=== PATIENT | female | born 1935 | race Caucasian/White ===

== ENCOUNTER 2016-12-16 23:38 | Inpatient (IN) | payer OTHER ==
[~2016-12-16] VITALS: Ht 160 cm; Wt 88.1 kg
--- NOTE | ~2016-12-16 | CON ---
[place], [place] REPORT OF CONSULTATION NAME: JILL POSEY UNIT #: [id number] ROOM: 425 DOCTOR: MEKA ORNELAS MD BIRTHDATE: [birth year] DOS: 12/21/2016 CHIEF COMPLAINT: "Oh I feel so much better today, thank you for asking." HISTORY OF PRESENT ILLNESS: This is an 81-year-old white female who was admitted to the hospital due to a significant change in her mental status. The patient presented acutely confused with a significant headache and slurring of her speech. Per the patient's report, the patient suddenly began slurring her words. Her sister who was with her noticed this and brought to her attention. This progressively worsened over the next hour to the point where she was unable to speak and when she did speak it was per her report nonsensical. She subsequently was admitted to the medical floor where she was diagnosed with a transient ischemic attack and also with a UTI. The chart indicates that the patient has improved gradually over time, most recently it notes that the daughter states that the patient has been seeing shadow people; however, when I interviewed her today, she denied that this was occurring. MENTAL STATUS: She is alert and oriented. Mood does seem to be euthymic. Affect appropriate. There are no symptoms of gucci or hypomania. There are no voice delusions or paranoia. No auditory or visual hallucinations. For the most part, memory is fully intact. DIAGNOSIS: Brief psychotic disorder, resolving. PLAN: At this point, I would monitor. With the treatment of the UTI, this seems to be resolving and seems to be more of a metabolic issues At this point, I see no reason to admit to the [facility]. MEKA ORNELAS MD CM:CONSTR:REPORT OF CONSULTATION 1016 12/21/16 2135 interface
[~2016-12-16 23:38] MED LIST: ASPI-COR81 M1 PO; CEPHALEXIN500 M1 PO; DARVOCET N 1001 TAB PO; ENALAPRIL20 MG PO; GLIPIZIDE10 MG PO; LEVOTHYROXIN0.025 MG PO; MACROBID100 M1 PO; METFORMIN850 MG PO; METOPROLOL SUCC50 M1 PO; METOPROLOL50 MG PO; OSTEO BI-FLEX1 EAC1 PO; VICODIN 5-3001 EACH PO; VITAMIN D5000 UNIT PO; VOLTAREN50 M1 PO
[2016-12-16 23:50] VITALS: BP 195/73
[2016-12-17 00:41] LABS: BASO # 0.1 10*3/uL (0.0-0.1); BASO % 0.6 % (0.0-1.0); EOS # 0.1 10*3/uL (0.0-0.4); EOS % 1.3 % (1.0-4.0); HEMATOCRIT 40.7 % (37.0-47.0); HEMOGLOBIN 13.4 g/dl (12.0-16.0); LYMPH # 3.1 10*3/uL (1.3-4.4); MEAN CELL VOLUME 90.6 fl (81.0-99.0); MEAN CORPUSCULAR HGB 29.8 pg (27.0-31.0); MEAN CORPUSCULAR HGB CONC 32.9 g/dl (33.0-37.0); MEAN PLATELET VOLUME 10.6 fl (9.6-12.3); MONO # 0.6 10*3/uL (0.1-1.0); MONO % 5.6 % (3.0-9.0); PLATELET COUNT AUTOMATED 313 10*3/uL (130-400); RED BLOOD COUNT 4.49 10*6/uL (4.10-5.10); RED CELL DISTRI WIDTH 13.3 % (0-14.5); WHITE BLOOD COUNT 10.9 10*3/uL (4.8-10.8)
[2016-12-17 01:02] LABS: ALBUMIN 3.3 gm/dl (3.1-4.5); ALKALINE PHOSPHATASE 93 U/L (45-117); BUN 13 mg/dl (7-24); CHLORIDE 103 mmol/L (98-107); CREATININE 0.94 mg/dL (0.55-1.02); MAGNESIUM 1.8 mg/dL (1.5-2.1); POTASSIUM 3.9 mmol/L (3.5-5.1); SGOT/AST 14 IU/L (3-35); SGPT/ALT 16 U/L (12-78); SODIUM 140 mmol/L (136-145); TOTAL PROTEIN 6.6 gm/dL (6.4-8.2)
[2016-12-17 01:04] LABS: TROPONIN I < 0.015 ng/ml (<0.045)
[2016-12-17 01:33] LABS: ACT PARTIAL THROMBO TIME 21.9 SECONDS (20.8-31.5); INTERNATIONAL NORM RATIO 0.9 (2.0-3.5)
[2016-12-17 02:07] LABS: BILIRUBIN NEGATIVE (NEGATIVE); BLOOD NEGATIVE (NEGATIVE); CLARITY CLOUDY (CLEAR); COLOR YELLOW (YELLOW); GLUCOSE NEGATIVE (NEGATIVE); KETONE TRACE (NEGATIVE); LEUKO ESTERASE 3+ (NEGATIVE); NITRITE POSITIVE (NEGATIVE); SPECIFIC GRAVITY 1.025 (1.005-1.030); UROBILINOGEN 0.2 E.U./dl (0.2-1.0)
[2016-12-17 02:12] LABS: BACTERIA 2+; EPITHELIAL CELLS TNTC; WBC 21-30 wbc/hpf (0-5)
[2016-12-17 02:33] VITALS: BP 150/72
--- NOTE | 2016-12-17 03:09 | NUR ---
ATTEMPTED TO CALL REPORT TO FLOOR
--- NOTE | 2016-12-17 03:26 | NUR ---
pt report given to santana calhoun
[2016-12-17 03:45] VITALS: BP 145/54
--- NOTE | 2016-12-17 03:45 | NUR ---
A 81, admitted to , under the services of MAXINE Zavala DO with a diagnosis of UTI. Chief complaint is some confusion, not using right words and difficulty speaking. . Patient arrived via private vehicle to ER. Monitor applied. Initial assessment completed. Vital signs taken and recorded. MAXINE ZAVALA DO to be notified of admission to the unit. And to obtain orders. See assessment for past medical history, medications and allergies. Patient and/or family oriented to unit. [facility]. Clothing/patient valuable form completed. RONAN SUE
[2016-12-17] MEDS ORDERED: ENALAPRIL20 MG PO (03:57)
[2016-12-17] MEDS ORDERED: FISH OIL 1,0001 EAC5 PO (04:05)
--- NOTE | 2016-12-17 05:32 | NUR ---
PRN TYLENOL GIVEN TO PATIENT FOR C/O SLIGHT HEADACHE. WILL MONITOR.
[2016-12-17 05:55] LABS: BASO # 0.1 10*3/uL (0.0-0.1); BASO % 0.5 % (0.0-1.0); EOS # 0.1 10*3/uL (0.0-0.4); EOS % 1.2 % (1.0-4.0); HEMATOCRIT 38.4 % (37.0-47.0); HEMOGLOBIN 12.6 g/dl (12.0-16.0); LYMPH # 3.2 10*3/uL (1.3-4.4); LYMPH % 30.4 % (27.0-41.0); MEAN CELL VOLUME 89.7 fl (81.0-99.0); MEAN CORPUSCULAR HGB 29.4 pg (27.0-31.0); MEAN CORPUSCULAR HGB CONC 32.8 g/dl (33.0-37.0); MEAN PLATELET VOLUME 11.2 fl (9.6-12.3); MONO # 0.6 10*3/uL (0.1-1.0); MONO % 5.9 % (3.0-9.0); NEUT # 6.5 10*3/uL (2.3-7.9); NEUT % 61.6 % (47.0-73.0); PLATELET COUNT AUTOMATED 301 10*3/uL (130-400); RED BLOOD COUNT 4.28 10*6/uL (4.10-5.10); RED CELL DISTRI WIDTH 13.4 % (0-14.5); WHITE BLOOD COUNT 10.6 10*3/uL (4.8-10.8)
[2016-12-17 06:02] LABS: ALBUMIN 3.1 gm/dl (3.1-4.5); ALKALINE PHOSPHATASE 91 U/L (45-117); BUN 12 mg/dl (7-24); CHLORIDE 106 mmol/L (98-107); CHOLESTEROL 144 mg/dL (<200); CREATININE 0.79 mg/dL (0.55-1.02); FREE T4 1.04 ng/dl (0.76-1.46); HDL CHOLESTEROL 75 mg/dl (40-60); LDL CHOLESTEROL 38 mg/dL (9-159); MAGNESIUM 1.8 mg/dL (1.5-2.1); PHOSPHOROUS 3.3 mg/dL (2.5-4.9); POTASSIUM 3.6 mmol/L (3.5-5.1); SGOT/AST 15 IU/L (3-35); SGPT/ALT 16 U/L (12-78); SODIUM 139 mmol/L (136-145); TOTAL PROTEIN 6.4 gm/dL (6.4-8.2); TRIGLYCERIDES 156 mg/dl (<150); VLDL CHOLESTEROL 31 mg/dL (6-40)
[2016-12-17 06:17] LABS: ACT PARTIAL THROMBO TIME 27.3 SECONDS (20.8-31.5)
[2016-12-17 08:00] VITALS: BP 149/60
[2016-12-17 08:57] LABS: VITAMIN D, 25-HYDROXY 25.1 ng/mL (30-100)
[2016-12-17 12:00] VITALS: BP 152/58
[2016-12-17 16:00] VITALS: BP 137/58
--- NOTE | 2016-12-17 16:09 | NUR ---
TYLENOL FOR C/O FRONTAL CONWAY. PT DENIES C/O VISUAL CHANGES OR DIZZINESS. SEE EMAR.
[2016-12-17 20:00] VITALS: BP 148/59
[2016-12-18] VITALS: BP 121/67
--- NOTE | 2016-12-18 01:51 | NUR ---
Tylenol given per prn order for c/o frontal headache.
--- NOTE | 2016-12-18 03:00 | NUR ---
Pt is sleeping. No signs of pain noted.
[2016-12-18 08:00] VITALS: BP 151/56
--- NOTE | 2016-12-18 08:30 | NUR ---
Platen Press Operator Apprentice in to talk to patient. Patient states lives at HOME with NOONE. There are 0 STAYS ON MAIN FLOOR steps in the home. Physician: DR RAMIREZ Pharmacy: [facility] services: NONE Patient's level of ADLs: INDEPENDENT Patient has working utilities: YES DME: OCC USES A CANE Follow-up physician's appointment after d/c: WILL BE MADE PRIOR TO DC Does patient want to access PORTAL?: Discharge plan HOME. GIANCARLO DELGADO HAS DAUGHTER AND GRANDDAUGHTER THAT HELP IF SHE NEEDS IT
[2016-12-18 12:00] VITALS: BP 131/78
--- NOTE | 2016-12-18 15:16 | NUR ---
DR BECK CALLED TO ROOM, PER DTR PT WAS HAVING SOME TROUBLE WITH HER SPEECH WHICH IS ALREDAY RESOLVNG
[2016-12-18 16:00] VITALS: BP 114/97
[2016-12-18 20:00] VITALS: BP 135/49
--- NOTE | 2016-12-18 23:20 | NUR ---
PATIENT AWAKEN FOR VITALS, REVIEWED MRI FORM WITH PATIENT. SHE DID HAVE A LITTLE TROUBLE FINDING WORDS AT FIRST, THEN IT BECAME NO PROBLEM. PATIENT DENIES ANY PAIN AT THIS TIME. WILL CONTINUE TO MONITOR. PATIENT LEFT WITH CALL LIGHT IN REACH.
[2016-12-19] VITALS: BP 157/70
--- NOTE | 2016-12-19 00:19 | NUR ---
24 HR chart check completed.
[2016-12-19 06:04] LABS: BASO # 0.1 10*3/uL (0.0-0.1); BASO % 0.6 % (0.0-1.0); EOS # 0.3 10*3/uL (0.0-0.4); HEMATOCRIT 38.4 % (37.0-47.0); HEMOGLOBIN 12.9 g/dl (12.0-16.0); LYMPH # 3.5 10*3/uL (1.3-4.4); LYMPH % 40.1 % (27.0-41.0); MEAN CORPUSCULAR HGB 30.6 pg (27.0-31.0); MEAN CORPUSCULAR HGB CONC 33.6 g/dl (33.0-37.0); MEAN PLATELET VOLUME 11.1 fl (9.6-12.3); MONO # 0.6 10*3/uL (0.1-1.0); MONO % 6.6 % (3.0-9.0); NEUT # 4.3 10*3/uL (2.3-7.9); NEUT % 49.4 % (47.0-73.0); PLATELET COUNT AUTOMATED 277 10*3/uL (130-400); RED BLOOD COUNT 4.22 10*6/uL (4.10-5.10); RED CELL DISTRI WIDTH 13.4 % (0-14.5); WHITE BLOOD COUNT 8.7 10*3/uL (4.8-10.8)
[2016-12-19 06:19] LABS: BUN 16 mg/dl (7-24); CHLORIDE 108 mmol/L (98-107); CREATININE 0.85 mg/dL (0.55-1.02); POTASSIUM 4.1 mmol/L (3.5-5.1); SODIUM 143 mmol/L (136-145)
[2016-12-19 08:00] VITALS: BP 110/80
--- NOTE | 2016-12-19 09:15 | NUR ---
TAKEN DOWN FOR MRI HEAD. PREMEDICATED WITH ATIVAN 2MG IV
[2016-12-19 12:00] VITALS: BP 142/53
[2016-12-19 16:00] VITALS: BP 138/57
[2016-12-19 20:00] VITALS: BP 156/76
--- NOTE | 2016-12-19 20:00 | NUR ---
PATIENT SITTING UP IN BED, STATES SHE WAS FEELING GOOD OTHER THAN HAVING MULTIPLE BM'S, AND ON ACCIDENT ON THE FLOOR. PATIENT'S FRIEND AT BEDSIDE. PATIENT STATED SHE WAS READY TO GO HOME TOMORROW. PATIENT LEFT WITH CALL LIGHT IN REACH.
[2016-12-20] VITALS: BP 107/48
[2016-12-20 08:00] VITALS: BP 141/41
[2016-12-20 12:00] VITALS: BP 152/65
--- NOTE | 2016-12-20 13:56 | NUR ---
MESSAGE LEFT WITH BEHAVIORAL HEALTH REGARDING CONSULT WITH DR. ORNELAS.
[2016-12-20 16:00] VITALS: BP 137/89
--- NOTE | 2016-12-20 17:39 | NUR ---
I HAVE REVIEWED THE ASSESSMENTS, BRICERN
--- NOTE | 2016-12-20 19:30 | NUR ---
PT. IS RESTING COMFORTABLY IN BED AT THIS TIME. HOB IS ELEVATED, CALL LIGHT IN REACH, SEE SHIFT ASSESSMENT.
[2016-12-20 20:00] VITALS: BP 144/71
[2016-12-21] VITALS: BP 136/60
--- NOTE | 2016-12-21 03:21 | NUR ---
PRN TYLENOL GIVEN FOR PT. C/O HEADACHE, WILL MONITOR EFFECT.
--- NOTE | 2016-12-21 03:50 | NUR ---
PRN TYLENOL SEEMS EFFECTIVE, PT. IS SLEEPING COMFORTABLY WITH HOB ELEVATED SLIGHTLY AND CALL LIGHT IN REACH. RESPERS ARE EASY AND REGULAR.
--- NOTE | 2016-12-21 05:16 | NUR ---
24 HR chart check completed.
[2016-12-21 08:00] VITALS: BP 134/38
[2016-12-21 12:00] VITALS: BP 132/52
--- NOTE | 2016-12-21 13:46 | NUR ---
Contacted patients daughter eduin who stated she does have to work [employer], but can pick patient up tomorrow around 10AM.
[2016-12-21 16:00] VITALS: BP 100/85
[2016-12-21 20:00] VITALS: BP 143/51
[2016-12-22] VITALS: BP 135/61; BP 146/50
--- NOTE | 2016-12-22 01:12 | NUR ---
24 HR chart check completed.
--- NOTE | 2016-12-22 01:32 | NUR ---
PATIENT REQUESTED MEDICATION TO HELP HER SLEEP, RESTORIL GIVEN AT 0132.
--- NOTE | 2016-12-22 02:30 | NUR ---
PATIENT IN BED WITH EYES CLOSE, RESTORIL APPEARS TO BE EFFECTIVE.
[2016-12-22 07:55] LABS: BASO # 0.1 10*3/uL (0.0-0.1); BASO % 0.5 % (0.0-1.0); EOS # 0.3 10*3/uL (0.0-0.4); EOS % 2.7 % (1.0-4.0); HEMATOCRIT 39.9 % (37.0-47.0); HEMOGLOBIN 13.3 g/dl (12.0-16.0); LYMPH # 3.2 10*3/uL (1.3-4.4); LYMPH % 29.2 % (27.0-41.0); MEAN CELL VOLUME 91.1 fl (81.0-99.0); MEAN CORPUSCULAR HGB 30.4 pg (27.0-31.0); MEAN CORPUSCULAR HGB CONC 33.3 g/dl (33.0-37.0); MEAN PLATELET VOLUME 10.9 fl (9.6-12.3); MONO # 0.7 10*3/uL (0.1-1.0); MONO % 6.5 % (3.0-9.0); NEUT # 6.6 10*3/uL (2.3-7.9); NEUT % 60.4 % (47.0-73.0); PLATELET COUNT AUTOMATED 298 10*3/uL (130-400); RED BLOOD COUNT 4.38 10*6/uL (4.10-5.10); RED CELL DISTRI WIDTH 13.2 % (0-14.5); WHITE BLOOD COUNT 10.9 10*3/uL (4.8-10.8)
[2016-12-22 08:00] VITALS: BP 133/79
[2016-12-22 08:15] LABS: CREATININE 0.79 mg/dL (0.55-1.02)
--- NOTE | 2016-12-22 10:06 | NUR ---
CALLED DAVID AT [facility] TO COME AND SPEAK WITH PATIENTS DAUGHTER REGARDING A 10:00 AM DISCHARGE TODAY. PHYSICIAN HAS NOT PUT A DISCHARGE ORDER IN AT THIS TIME.
[2016-12-22 12:00] VITALS: BP 139/76
[2016-12-22] MEDS ORDERED: CIPROFLOXACIN500 M4 PO (13:12)
[2016-12-22] MEDS ORDERED: ATORVASTATIN CA80 M1 PO (13:15)
--- NOTE | 2016-12-22 14:02 | NUR ---
Discharge instructions reviewed with patient/family. Patient receptive and verbalizes understanding. Follow-up care arranged. Written instructions given to patient/family. Patient was wheeled off unit by staff member and daughter. ORQUIDEA WEST
== END 2016-12-22 14:02 | disposition home or self-care (01) | DRG 689 ==
LOC: ED 23:38 → 4E 12-17 03:09
PROVIDERS: Emergency Medicine; Hospitalist; Internal Medicine; ADMIT Internal Medicine
DX: N39.0 Urinary tract infection, site not specified (principal); G93.41 Metabolic encephalopathy; E11.65 Type 2 diabetes mellitus with hyperglycemia; G45.9 Transient cerebral ischemic attack, unspecified; I69.354 Hemiplegia and hemiparesis following cerebral infarction affecting left non-dominant side; I16.1 Hypertensive emergency; F23 Brief psychotic disorder; I10 Essential (primary) hypertension; E55.9 Vitamin D deficiency, unspecified; E03.9 Hypothyroidism, unspecified; E78.5 Hyperlipidemia, unspecified; B96.20 Unspecified Escherichia coli [E. coli] as the cause of diseases classified elsewhere; M19.90 Unspecified osteoarthritis, unspecified site; Z79.899 Other long term (current) drug therapy; Z79.82 Long term (current) use of aspirin; Z83.3 Family history of diabetes mellitus; Z82.3 Family history of stroke; Z80.8 Family history of malignant neoplasm of other organs or systems; Z90.49 Acquired absence of other specified parts of digestive tract

== ENCOUNTER 2017-05-28 13:10 | Emergency (ER) | payer OTHER ==
[~2017-05-28] VITALS: Ht 162.5 cm; Wt 86.2 kg
[~2017-05-28 13:10] MED LIST changes: +ATORVASTATIN CA80 M1 PO; +CIPROFLOXACIN500 M4 PO; +FISH OIL 1,0001 EAC5 PO
[2017-05-28 14:15] LABS: BILIRUBIN NEGATIVE (NEGATIVE); BLOOD NEGATIVE (NEGATIVE); CLARITY CLOUDY (CLEAR); COLOR YELLOW (YELLOW); GLUCOSE NEGATIVE (NEGATIVE); KETONE NEGATIVE (NEGATIVE); LEUKO ESTERASE NEGATIVE (NEGATIVE); NITRITE NEGATIVE (NEGATIVE); PH 5.5 (5.0-9.0); UROBILINOGEN 0.2 E.U./dl (0.2-1.0)
[2017-05-28 14:20] LABS: BACTERIA 1+; EPITHELIAL CELLS 0-2; MUCOUS 1+; WBC 0-2 wbc/hpf (0-5)
[2017-05-28 14:31] LABS: BASO # 0.1 10*3/uL (0.0-0.1); BASO % 0.8 % (0.0-1.0); EOS # 0.1 10*3/uL (0.0-0.4); EOS % 1.3 % (1.0-4.0); HEMOGLOBIN 13.6 g/dl (12.0-16.0); LYMPH # 2.2 10*3/uL (1.3-4.4); LYMPH % 24.5 % (27.0-41.0); MEAN CELL VOLUME 91.9 fl (81.0-99.0); MEAN CORPUSCULAR HGB 29.8 pg (27.0-31.0); MEAN CORPUSCULAR HGB CONC 32.4 g/dl (33.0-37.0); MEAN PLATELET VOLUME 10.5 fl (9.6-12.3); MONO # 0.5 10*3/uL (0.1-1.0); MONO % 5.6 % (3.0-9.0); NEUT % 67.5 % (47.0-73.0); PLATELET COUNT AUTOMATED 334 10*3/uL (130-400); RED BLOOD COUNT 4.57 10*6/uL (4.10-5.10); RED CELL DISTRI WIDTH 13.6 % (0-14.5); WHITE BLOOD COUNT 8.9 10*3/uL (4.8-10.8)
[2017-05-28 14:40] LABS: ACT PARTIAL THROMBO TIME 26.5 SECONDS (20.8-31.5); INTERNATIONAL NORM RATIO 0.9 (2.0-3.5)
[2017-05-28 14:47] LABS: ALBUMIN 3.3 gm/dl (3.1-4.5); ALKALINE PHOSPHATASE 96 U/L (45-117); BUN 14 mg/dl (7-24); CHLORIDE 105 mmol/L (98-107); CREATININE 0.87 mg/dL (0.55-1.02); SGOT/AST 12 IU/L (3-35); SGPT/ALT 19 U/L (12-78); SODIUM 141 mmol/L (136-145); TOTAL PROTEIN 6.9 gm/dL (6.4-8.2)
[2017-05-28 14:49] LABS: TROPONIN I < 0.015 ng/ml (<0.045)
[2017-05-28 18:08] VITALS: BP 147/48
== END 2017-05-28 23:01 | disposition short-term general hospital (02) ==
LOC: ED 13:10
PROVIDERS: Emergency Medicine
DX: R47.81 Slurred speech (principal); M19.90 Unspecified osteoarthritis, unspecified site; E11.9 Type 2 diabetes mellitus without complications; E78.5 Hyperlipidemia, unspecified; E03.9 Hypothyroidism, unspecified; I10 Essential (primary) hypertension; Z98.890 Other specified postprocedural states; Z86.73 Personal history of transient ischemic attack (TIA), and cerebral infarction without residual deficits; Z79.82 Long term (current) use of aspirin; Z79.899 Other long term (current) drug therapy

== ENCOUNTER 2018-03-01 18:27 | Emergency (ER) | payer OTHER ==
[~2018-03-01] VITALS: Wt 90.7 kg
[2018-03-01 20:03] LABS: BASO # 0.1 10*3/uL (0.0-0.1); BASO % 0.5 % (0.0-1.0); EOS % 0.2 % (1.0-4.0); HEMATOCRIT 44.8 % (37.0-47.0); HEMOGLOBIN 14.7 g/dl (12.0-16.0); LYMPH # 1.4 10*3/uL (1.3-4.4); LYMPH % 12.8 % (27.0-41.0); MEAN CORPUSCULAR HGB 30.2 pg (27.0-31.0); MEAN CORPUSCULAR HGB CONC 32.8 g/dl (33.0-37.0); MEAN PLATELET VOLUME 10.9 fl (9.6-12.3); MONO # 0.9 10*3/uL (0.1-1.0); MONO % 8.2 % (3.0-9.0); NEUT # 8.5 10*3/uL (2.3-7.9); NEUT % 77.6 % (47.0-73.0); PLATELET COUNT AUTOMATED 160 10*3/uL (130-400); RED BLOOD COUNT 4.87 10*6/uL (4.10-5.10); RED CELL DISTRI WIDTH 13.6 % (0-14.5)
[2018-03-01 20:12] LABS: ACT PARTIAL THROMBO TIME 25.4 SECONDS (20.8-31.5)
[2018-03-01 20:17] LABS: ALBUMIN 3.3 gm/dl (3.1-4.5); ALKALINE PHOSPHATASE 108 U/L (45-117); BUN 11 mg/dl (7-24); CHLORIDE 107 mmol/L (98-107); CREATININE 0.99 mg/dL (0.55-1.02); LIPASE 131 U/L (73-393); POTASSIUM 3.6 mmol/L (3.5-5.1); SGOT/AST 15 IU/L (3-35); SGPT/ALT 29 U/L (12-78); SODIUM 142 mmol/L (136-145)
[2018-03-01 20:18] LABS: TROPONIN I < 0.015 ng/ml (<0.045)
[2018-03-01 20:58] VITALS: BP 147/62
[2018-03-01] MEDS ORDERED: AMINOPHYLLIN200 MG PO (21:00)
== END 2018-03-01 21:10 | disposition home or self-care (01) ==
LOC: ED 18:27
PROVIDERS: Nurse Practitioner Family
DX: J01.90 Acute sinusitis, unspecified (principal); M54.2 Cervicalgia; R05 Cough; E03.9 Hypothyroidism, unspecified; E11.9 Type 2 diabetes mellitus without complications; I10 Essential (primary) hypertension; E78.5 Hyperlipidemia, unspecified; M19.90 Unspecified osteoarthritis, unspecified site; Z86.73 Personal history of transient ischemic attack (TIA), and cerebral infarction without residual deficits; Z87.442 Personal history of urinary calculi; Z79.899 Other long term (current) drug therapy; Z79.82 Long term (current) use of aspirin

== ENCOUNTER → 2018-10-21 | Outpatient (CLI) | payer OTHER ==
[~2018-10-21] MED LIST changes: +AMINOPHYLLIN200 MG PO
== END | disposition home or self-care (01) ==
LOC: MRI 11:00
DX: M47.816 Spondylosis without myelopathy or radiculopathy, lumbar region (principal); M47.26 Other spondylosis with radiculopathy, lumbar region

== ENCOUNTER → 2019-01-09 | Outpatient (CLI) | payer OTHER ==
[2019-01-09 12:27] LABS: BASO % 0.2 % (0.0-1.0); HEMATOCRIT 46.7 % (37.0-47.0); HEMOGLOBIN 15.2 g/dl (12.0-16.0); LYMPH % 10.6 % (27.0-41.0); MEAN CORPUSCULAR HGB 30.3 pg (27.0-31.0); MEAN CORPUSCULAR HGB CONC 32.5 g/dl (33.0-37.0); MONO # 0.3 10*3/uL (0.1-1.0); MONO % 1.8 % (3.0-9.0); NEUT # 16.6 10*3/uL (2.3-7.9); NEUT % 86.7 % (47.0-73.0); PLATELET COUNT AUTOMATED 434 10*3/uL (130-400); RED BLOOD COUNT 5.02 10*6/uL (4.10-5.10); RED CELL DISTRI WIDTH 13.3 % (0-14.5); WHITE BLOOD COUNT 19.1 10*3/uL (4.8-10.8)
== END | disposition home or self-care (01) ==
LOC: LAB 11:55
PROVIDERS: Orthopaedic Surgery
DX: I10 Essential (primary) hypertension (principal); M25.50 Pain in unspecified joint

== ENCOUNTER → 2019-01-14 | Outpatient (CLI) | payer OTHER ==
[2019-01-14 12:47] LABS: BASO # 0.1 10*3/uL (0.0-0.1); BASO % 0.5 % (0.0-1.0); EOS # 0.2 10*3/uL (0.0-0.4); EOS % 1.2 % (1.0-4.0); HEMATOCRIT 47.1 % (37.0-47.0); HEMOGLOBIN 14.9 g/dl (12.0-16.0); LYMPH # 3.7 10*3/uL (1.3-4.4); LYMPH % 25.3 % (27.0-41.0); MEAN CELL VOLUME 92.7 fl (81.0-99.0); MEAN CORPUSCULAR HGB 29.3 pg (27.0-31.0); MEAN CORPUSCULAR HGB CONC 31.6 g/dl (33.0-37.0); MEAN PLATELET VOLUME 10.9 fl (9.6-12.3); MONO # 0.7 10*3/uL (0.1-1.0); NEUT # 9.8 10*3/uL (2.3-7.9); NEUT % 66.8 % (47.0-73.0); PLATELET COUNT AUTOMATED 390 10*3/uL (130-400); RED BLOOD COUNT 5.08 10*6/uL (4.10-5.10); RED CELL DISTRI WIDTH 13.2 % (0-14.5); WHITE BLOOD COUNT 14.7 10*3/uL (4.8-10.8)
== END | disposition home or self-care (01) ==
LOC: LAB 11:57
PROVIDERS: Orthopaedic Surgery
DX: I10 Essential (primary) hypertension (principal); R79.89 Other specified abnormal findings of blood chemistry; D72.829 Elevated white blood cell count, unspecified

== ENCOUNTER 2019-05-04 16:17 | Emergency (ER) | payer OTHER ==
[~2019-05-04] VITALS: Wt 86.2 kg
[2019-05-04 17:23] LABS: BILIRUBIN 1+ (NEGATIVE); BLOOD 1+ (NEGATIVE); CLARITY CLOUDY (CLEAR); COLOR YELLOW (YELLOW); GLUCOSE NEGATIVE (NEGATIVE); KETONE NEGATIVE (NEGATIVE); LEUKO ESTERASE 2+ (NEGATIVE); NITRITE POSITIVE (NEGATIVE); SPECIFIC GRAVITY 1.025 (1.005-1.030); UROBILINOGEN 0.2 E.U./dl (0.2-1.0)
[2019-05-04 17:24] LABS: BACTERIA 4+; MUCOUS 3+; RBC 0-2 rbc/hpf (0-2); WBC 51-100 wbc/hpf (0-5)
[2019-05-04 17:31] LABS: HEMATOCRIT 44.7 % (37.0-47.0); HEMOGLOBIN 14.5 g/dl (12.0-16.0); MEAN CELL VOLUME 92.5 fl (81.0-99.0); MEAN CORPUSCULAR HGB CONC 32.4 g/dl (33.0-37.0); MEAN PLATELET VOLUME 11.1 fl (9.6-12.3); PLATELET COUNT AUTOMATED 364 10*3/uL (130-400); RED BLOOD COUNT 4.83 10*6/uL (4.10-5.10); RED CELL DISTRI WIDTH 12.9 % (0-14.5); WHITE BLOOD COUNT 17.9 10*3/uL (4.8-10.8)
[2019-05-04 17:45] LABS: ALBUMIN 3.3 gm/dl (3.1-4.5); ALKALINE PHOSPHATASE 128 U/L (45-117); BUN 18 mg/dl (7-24); CHLORIDE 104 mmol/L (98-107); CREATININE 0.98 mg/dL (0.55-1.02); SGOT/AST 11 IU/L (3-35); SGPT/ALT 20 U/L (12-78); SODIUM 139 mmol/L (136-145); TOTAL PROTEIN 6.7 gm/dL (6.4-8.2)
[2019-05-04 17:49] LABS: PLATELET SUFFICIENCY NORMAL (NORMAL); TOTAL CELLS COUNTED 100 #CELLS
[2019-05-04 18:00] VITALS: BP 158/70
[2019-05-04] MEDS ORDERED: AMINOPHYLLIN200 MG PO (18:16)
== END 2019-05-04 18:35 | disposition home or self-care (01) ==
LOC: ED 16:17
PROVIDERS: Physician Assistant
DX: N39.0 Urinary tract infection, site not specified (principal); I10 Essential (primary) hypertension; E11.9 Type 2 diabetes mellitus without complications; Z79.899 Other long term (current) drug therapy; Z79.84 Long term (current) use of oral hypoglycemic drugs; Z79.82 Long term (current) use of aspirin; Z90.49 Acquired absence of other specified parts of digestive tract; Z86.73 Personal history of transient ischemic attack (TIA), and cerebral infarction without residual deficits

== ENCOUNTER → 2021-01-05 | Outpatient (CLI) | payer OTHER ==
[2021-01-05 14:01] LABS: ALBUMIN 3.2 gm/dl (3.1-4.5); ALKALINE PHOSPHATASE 112 U/L (45-117); BUN 19 mg/dl (7-24); CHLORIDE 106 mmol/L (98-107); CREATININE 0.96 mg/dL (0.55-1.02); POTASSIUM 3.7 mmol/L (3.5-5.1); SGOT/AST 8 IU/L (3-35); SGPT/ALT 26 U/L (12-78); SODIUM 139 mmol/L (136-145); TOTAL PROTEIN 6.5 gm/dL (6.4-8.2)
== END | disposition home or self-care (01) ==
LOC: LAB 13:18
PROVIDERS: ATTEND Orthopaedic Surgery
DX: Z79.1 Long term (current) use of non-steroidal anti-inflammatories (NSAID) (principal)

== ENCOUNTER → 2021-01-17 | Outpatient (CLI) | payer OTHER | END | disposition home or self-care (01) | LOC: MRI 07:33 | PROVIDERS: ATTEND Orthopaedic Surgery | DX: M16.11 Unilateral primary osteoarthritis, right hip (principal); M51.37 Other intervertebral disc degeneration, lumbosacral region; M48.07 Spinal stenosis, lumbosacral region; M47.817 Spondylosis without myelopathy or radiculopathy, lumbosacral region; M60.9 Myositis, unspecified; M45.1 Ankylosing spondylitis of occipito-atlanto-axial region ==

== ENCOUNTER 2021-03-11 11:00 | Inpatient (IN) | payer OTHER ==
[~2021-03-11] VITALS: Ht 210.8 cm; Wt 83.9 kg
[2021-03-11 11:05] VITALS: BP 134/57
[2021-03-11 11:40] LABS: BASO % 0.7 % (0.0-1.0); EOS % 0.2 % (1.0-4.0); HEMATOCRIT 40.4 % (37.0-47.0); LYMPH # 0.5 10*3/uL (1.3-4.4); LYMPH % 8.8 % (27.0-41.0); MEAN CELL VOLUME 94.8 fl (81.0-99.0); MEAN CORPUSCULAR HGB 30.8 pg (27.0-31.0); MEAN CORPUSCULAR HGB CONC 32.4 g/dl (33.0-37.0); MEAN PLATELET VOLUME 10.4 fl (9.6-12.3); MONO # 0.7 10*3/uL (0.1-1.0); MONO % 12.3 % (3.0-9.0); NEUT # 4.3 10*3/uL (2.3-7.9); NEUT % 77.1 % (47.0-73.0); PLATELET COUNT AUTOMATED 293 10*3/uL (130-400); RED BLOOD COUNT 4.26 10*6/uL (4.10-5.10); WHITE BLOOD COUNT 5.5 10*3/uL (4.8-10.8)
[2021-03-11 11:57] LABS: ALBUMIN 2.9 gm/dl (3.1-4.5); ALKALINE PHOSPHATASE 86 U/L (45-117); BUN 13 mg/dl (7-24); CHLORIDE 106 mmol/L (98-107); CREATININE 1.02 mg/dL (0.55-1.02); LIPASE 79 U/L (73-393); POTASSIUM 3.6 mmol/L (3.5-5.1); SGOT/AST 20 IU/L (3-35); SGPT/ALT 24 U/L (12-78); SODIUM 139 mmol/L (136-145); TOTAL PROTEIN 6.3 gm/dL (6.4-8.2)
[2021-03-11 14:00] VITALS: BP 140/86
[2021-03-11 17:14] LABS: BILIRUBIN Negative (Negative); BLOOD Negative (Negative); CLARITY Clear (Clear); COLOR Yellow (Yellow); GLUCOSE Negative (Negative); KETONE Negative (Negative); LEUKO ESTERASE Negative (Negative); NITRITE Negative (Negative); SPECIFIC GRAVITY 1.015 (1.001-1.030); UROBILINOGEN 0.2 E.U./dl (0.0-1.0)
[2021-03-11 17:20] LABS: BACTERIA TRACE; EPITHELIAL CELLS 0-2; WBC 0-2 wbc/hpf (0-5)
[2021-03-11 18:30] VITALS: BP 138/84
[2021-03-11 20:14] VITALS: BP 152/68
[2021-03-11] MEDS ORDERED: LOPRESSOR25 MG PO (20:19)
[2021-03-11] MEDS ORDERED: METFORMIN HYDR750 MG PO (20:20)
[2021-03-12 02:42] VITALS: BP 146/71
[2021-03-12 06:04] LABS: ALBUMIN 2.8 gm/dl (3.1-4.5); BUN 12 mg/dl (7-24); CHLORIDE 105 mmol/L (98-107); POTASSIUM 3.4 mmol/L (3.5-5.1); SODIUM 138 mmol/L (136-145)
[2021-03-12 06:14] LABS: ALKALINE PHOSPHATASE 77 U/L (45-117); CHOLESTEROL 124 mg/dL (<200); CREATININE 0.93 mg/dL (0.55-1.02); FREE T4 0.88 ng/dl (0.76-1.46); LDL CHOLESTEROL 21 mg/dL (9-159); SGOT/AST 36 IU/L (3-35); SGPT/ALT 30 U/L (12-78); THYROID STIM HORMONE (HS) 0.572 uIU/ml (0.358-4.75); TOTAL PROTEIN 6.1 gm/dL (6.4-8.2); TRIGLYCERIDES 62 mg/dl (<150)
[2021-03-12 06:19] LABS: BASO % 0.9 % (0.0-1.0); EOS % 0.2 % (1.0-4.0); HEMATOCRIT 39.8 % (37.0-47.0); LYMPH # 0.7 10*3/uL (1.3-4.4); LYMPH % 15.1 % (27.0-41.0); MEAN CELL VOLUME 95.4 fl (81.0-99.0); MEAN CORPUSCULAR HGB 31.2 pg (27.0-31.0); MEAN CORPUSCULAR HGB CONC 32.7 g/dl (33.0-37.0); MONO # 0.7 10*3/uL (0.1-1.0); MONO % 15.8 % (3.0-9.0); NEUT # 2.9 10*3/uL (2.3-7.9); NEUT % 67.3 % (47.0-73.0); PLATELET COUNT AUTOMATED 272 10*3/uL (130-400); RED BLOOD COUNT 4.17 10*6/uL (4.10-5.10); RED CELL DISTRI WIDTH 14.2 % (0-14.5); WHITE BLOOD COUNT 4.4 10*3/uL (4.8-10.8)
[2021-03-12 07:53] LABS: VITAMIN D, 25-HYDROXY 33.8 ng/mL (30-100)
[2021-03-12 09:29] VITALS: BP 166/74
[2021-03-12 14:43] VITALS: BP 133/50
[2021-03-12 20:00] VITALS: BP 164/85
[2021-03-13] VITALS: BP 142/53
[2021-03-13 08:00] VITALS: BP 116/56
[2021-03-13 12:00] VITALS: BP 102/56
[2021-03-13 16:00] VITALS: BP 99/46
[2021-03-13 20:00] VITALS: BP 106/84
[2021-03-14 00:08] VITALS: BP 109/64
[2021-03-14 07:00] LABS: CREATININE 1.71 mg/dL (0.55-1.02); POTASSIUM 4.1 mmol/L (3.5-5.1)
[2021-03-14 08:00] VITALS: BP 119/58
[2021-03-14 12:00] VITALS: BP 91/37
[2021-03-14 16:00] VITALS: BP 114/48
[2021-03-14 20:00] VITALS: BP 141/50
[2021-03-15] VITALS: BP 136/61
[2021-03-15 06:31] LABS: BASO % 0.2 % (0.0-1.0); HEMATOCRIT 42.6 % (37.0-47.0); LYMPH # 0.9 10*3/uL (1.3-4.4); MEAN CORPUSCULAR HGB 30.6 pg (27.0-31.0); MEAN CORPUSCULAR HGB CONC 32.9 g/dl (33.0-37.0); MEAN PLATELET VOLUME 11.1 fl (9.6-12.3); MONO # 0.5 10*3/uL (0.1-1.0); MONO % 9.1 % (3.0-9.0); NEUT # 3.8 10*3/uL (2.3-7.9); NEUT % 73.3 % (47.0-73.0); PLATELET COUNT AUTOMATED 260 10*3/uL (130-400); RED BLOOD COUNT 4.58 10*6/uL (4.10-5.10); RED CELL DISTRI WIDTH 13.7 % (0-14.5); WHITE BLOOD COUNT 5.2 10*3/uL (4.8-10.8)
[2021-03-15 06:48] LABS: POTASSIUM 3.6 mmol/L (3.5-5.1)
[2021-03-15 07:04] LABS: CREATININE 1.68 mg/dL (0.55-1.02)
[2021-03-15 09:00] VITALS: BP 115/50
[2021-03-15 11:35] VITALS: BP 92/50
[2021-03-15 16:00] VITALS: BP 158/58
== END 2021-03-15 18:32 | disposition home or self-care (01) | DRG 871 ==
LOC: ED 11:00 → 4E 13:29 → EDHOLD 13:29 → 4E 03-12 12:13
PROVIDERS: Family Medicine; Internal Medicine; Registered Nurse; ADMIT Student in an Organized Health Care Education/Training Program; ATTEND Student in an Organized Health Care Education/Training Program
DX: A41.9 Sepsis, unspecified organism (principal); N17.0 Acute kidney failure with tubular necrosis; U07.1 COVID-19; E44.0 Moderate protein-calorie malnutrition; M19.90 Unspecified osteoarthritis, unspecified site; W06.XXXA Fall from bed, initial encounter; R26.2 Difficulty in walking, not elsewhere classified; M54.2 Cervicalgia; M54.50 Low back pain, unspecified; I10 Essential (primary) hypertension; E03.9 Hypothyroidism, unspecified; E11.9 Type 2 diabetes mellitus without complications; E53.8 Deficiency of other specified B group vitamins; E87.6 Hypokalemia; I44.0 Atrioventricular block, first degree; Z90.49 Acquired absence of other specified parts of digestive tract; Y92.092 Bedroom in other non-institutional residence as the place of occurrence of the external cause; Y99.8 Other external cause status; Z79.82 Long term (current) use of aspirin; Z79.899 Other long term (current) drug therapy; Y93.89 Activity, other specified